=== PATIENT | male | born 1970 | race Hispanic/Latino ===

== ENCOUNTER → 2024-06-24 | Outpatient (CLI) | payer BC ==
[2024-06-24 09:08] LABS: BASOPHILS % (AUTO) 1.2 % (0.0-5.0); EOSINOPHILS # (AUTO) 0.33 K/uL (0.00-0.70); EOSINOPHILS % (AUTO) 4.1 % (0.0-8.0); HEMATOCRIT 51.3 % (42-54); IMMATURE GRANULOCYTE ABSOLUTE 0.03 K/uL (0-1); LYMPHOCYTES # (AUTO) 2.9 K/uL (1.0-4.8); LYMPHOCYTES % (AUTO) 35.6 % (21.0-51.0); MEAN CORPUSCULAR HEMOGLOBIN 30.7 pg (27.0-33.0); MEAN CORPUSCULAR HGB CONC 33.9 g/dL (32.0-36.0); MEAN CORPUSCULAR VOLUME 90.6 fL (79-99); MONOCYTES # (AUTO) 0.8 K/uL (0.1-1.0); MONOCYTES % (AUTO) 9.5 % (3.0-13.0); NEUTROPHILS % (AUTO) 49.2 % (40.0-77.0); PLATELET COUNT (AUTO) 306 K/uL (130-400); RED BLOOD CELL COUNT(AUTO) 5.66 MIL/uL (4.50-6.20); RED CELL DISTRIBUTION WIDTH 13.7 % (11.0-15.5)
[2024-06-24 09:16] LABS: HEMOGLOBIN A1C 5.9 % (4.0-6.0)
[2024-06-24 09:21] LABS: ALBUMIN 3.8 g/dL (3.5-5.0); BILIRUBIN,TOTAL 0.9 mg/dL (0.2-1.0); CREATININE 1.2 mg/dL (0.5-1.3); POTASSIUM 4.7 mmol/L (3.5-5.1); TOTAL PROTEIN, SERUM 7.8 g/dL (6.0-8.3)
[2024-06-24 09:24] LABS: INR 1.01 (0.85-1.15); PROTHROMBIN TIME 10.7 SEC (9.6-11.6)
[2024-06-24 09:25] LABS: PARTIAL THROMBOPLASTIN TIME 27.8 SEC (26.3-35.5)
--- NOTE | 2024-06-24 09:59 | HMCIMG ---
CHEST 2VWS HISTORY: No additional history given. COMPARISON: None FINDINGS: Frontal and lateral projections of the chest were obtained. There is no acute pulmonary infiltrates or failure. The heart is not enlarged. Degenerative changes are seen of the thoracolumbar spine. IMPRESSION: 1. No acute pulmonary infiltrates.
--- NOTE | 2024-06-24 15:18 | EKG ---
[facility] Test Date: 2024-06-24 Test Time: 08:55:34 Pat Name: CORDELIA LADD Department: LAB Room: Gender: Male [employer] Tender: [id number] : 1970 Requested By: BENJY WEAVER Order Number: [id number] Reading MD: Measurements Intervals [place] Rate: 64 P: 24 DE: 142 QRS: -8 QRSD: 87 T: 17 QT: 366 QTc: 378 Interpretive Statements Sinus rhythm No previous ECG available for comparison Please click the below link to view image of tracing.
== END | disposition home or self-care (01) ==
LOC: LAB 08:13
PROVIDERS: ATTEND Family Medicine
DX: Z01.818 Encounter for other preprocedural examination (principal); E78.5 Hyperlipidemia, unspecified; R73.9 Hyperglycemia, unspecified; M47.815 Spondylosis without myelopathy or radiculopathy, thoracolumbar region
CPT/HCPCS: 36415; 71046; 80053; 83036; 85025; 85610; 85730; 93005